=== PATIENT | male | born 1935 | race Caucasian/White ===

== ENCOUNTER → 2017-05-25 | Outpatient (CLI) | payer MEDICARE ==
[~2017-05-25] MED LIST: AMARYL 4MG. TAB4 MG PO; AMLO5TAB PO; ASPIRIN ADULT L81 M3 PO; CARBIDOPA/LE1 TABLE2 PO; CARVEDILOL 1212.5 MG PO; CEFUROXIME AXE500 MG PO; FLUDROCORTISON0.1 M1 PO; FUROSEMIDE 20MG20 MG PO; GLIMEPIRIDE4 MG PO; HYDROCODONE/APA1 TA8 PO; LEVOFLOXACIN 5500 MG PO; LISINOPRIL/HCTZ1 TA1 PO; LISINOPRIL5 MG PO; METFORMIN HCL850 MG PO; METOPROLOL TART50 MG PO; PRAVACHOL 20MG.20 MG PO; TAMSULOSIN HCL0.4 MG PO; TOUJEO300 U/ML SC; TRAMADOL 50MG T50 MG PO
--- NOTE | 2017-05-25 13:53 | RADIOLOGY REPORT PS360 ---
CHEST(2 VIEWS-NOT PORTABLE) COMPARISON: CT scan chest 02/05/2017 HISTORY: Left-sided chest wall pain TECHNIQUE: PA and lateral chest FINDINGS: There are healing fractures of the right seventh eighth and ninth ribs with prominent callus formation at fracture sites with the recent CT scan 05 February show no true bony fusion of these fractures. There are healing and/or old arches of the left fifth and sixth ribs posteriorly. The lung nelson are clear of active infiltrate. Cardiac size is normal and the vascularity is normal and is no pleural fluid. There is generalized osteopenia. IMPRESSION: Bilateral rib fractures most likely old, the left rib fractures are seen on the recent CT scan of chest as well.. I doubt an acute rib fracture on either side but with generalized osteopenia a subtle nondisplaced fracture could be missed.
--- NOTE | 2017-05-25 13:56 | RADIOLOGY REPORT PS360 ---
[id number] VIEWS COMPARISON: PA and lateral chest same date HISTORY: Left chest wall pain TECHNIQUE: PA chest and oblique views left RIBS FINDINGS: There are old fractures of the left fifth and sixth ribs posteriorly with moderate callus formation at fracture sites. Is no definite acute rib fracture seen. The left lung field is clear and there is no pneumothorax. Again noted is generalized osteopenia the bony thorax. IMPRESSION: Probably incompletely fused old fractures left fifth and sixth ribs, no definite acute left rib fracture seen.
== END ==
LOC: RAD 12:10
DX: R07.81 Pleurodynia (principal)

== ENCOUNTER → 2017-07-17 | Outpatient (CLI) | payer MEDICARE ==
[2017-07-17 17:10] LABS: BUN 38 mg/dL (7-18)
[2017-07-17 17:39] LABS: GFR (ESTIMATED) 24 ML/MIN (>60)
== END ==
LOC: LAB 15:34
PROVIDERS: Internal Medicine Nephrology
DX: N18.4 Chronic kidney disease, stage 4 (severe) (principal)

== ENCOUNTER → 2017-07-19 | Outpatient (CLI) | payer MEDICARE | LOC: LAB 16:49 | DX: N18.4 Chronic kidney disease, stage 4 (severe) (principal) ==